=== PATIENT | male | born 1940 | race American Indian/Alaskan Native ===

== ENCOUNTER 2017-10-19 11:56 | Emergency (ER) | payer MEDICARE, OTHER ==
[2017-10-19 12:11] VITALS: PULSE 72; RESP 69; TEMP 97.9; O2SAT 96; BMI 25.7
--- NOTE | 2017-10-19 13:02 | ED PDOC ---
Arrival/HPI - General Chief Complaint: Dizziness/Lightheaded Time Seen by Provider: 10/19/17 12:46 Historian: Patient, Family (son) - History of Present Illness Narrative History of Present Illness (Text): 10/19/17 12:56 A 76 year old male, whose past medical history includes hypertension, presents to the emergency department complaining of 2 episodes of dizziness/room spinning sensation since yesterday. Patient reports dizziness today was worse than yesterday, and describes it as a room spinning sensation, lasting ~ 5 minutes. States not having experienced a similar episode in the past. Currently is not feeling dizzy at this time here in the ER. Patient notes also experiencing frontal forehead headache and also the lights bother him slightly. Patient denies experiencing any nausea, vomiting, shortness of breath, chest pain, palpitations, abdominal pain, slurred speech, numbness/tingling/weakness to extremities or face, or any other complaints at this time. Also, patient's son mentions patient has not recently taken his hypertension medications ( patient has 2 different hypertension meds; takes each once per day). Patient ran out of medications 1 month ago and has not visited PMD recently. family/patient denied facial numbness/tingling denied speech changes denied focal weakness PMD: Dr. Hemant Rg pt is right hand dominate Time/Duration: 24 hours Symptom Onset: Sudden Symptom Course: Worsening Severity Level: 4, Mild Activities at Onset: Rest Context: Home Past Medical History - Provider Review Nursing Documentation Reviewed: Yes - Travel History Have you recently traveled outside [place] w/in the past 3 mons?: No - Past History Past History: No Previous - Infectious Disease Hx of Infectious Diseases: None - Tetanus Immunization Tetanus Immunization: Unknown - Cardiac Hx Hypertension: Yes - Pulmonary Hx Respiratory Disorders: No - Neurological Hx Neurological Disorder: No - HEENT Hx HEENT Disorder: No - Renal Hx Renal Disorder: No - Endocrine/Metabolic Hx Endocrine Disorders: No - Hematological/Oncological Hx Blood Disorders: No - Integumentary Hx Dermatological Disorder: No - Musculoskeletal/Rheumatological Hx Musculoskeletal Disorders: No - Gastrointestinal Hx Gastrointestinal Disorders: No - Genitourinary/Gynecological Hx Genitourinary Disorders: No - Psychiatric Hx Psychophysiologic Disorder: No Hx Depression: No Hx Emotional Abuse: No Hx Physical Abuse: No Hx Substance Use: No - Past Surgical History Past Surgical History: No Previous - Suicidal Assessment Feels Threatened In Home Enviroment: No Family/Social History - Physician Review Nursing Documentation Reviewed: Yes Family/Social History: No Known Family HX Smoking Status: Never Smoked Hx Alcohol Use: Yes Frequency of alcohol use: Daily Hx Substance Use: No Hx Substance Use Treatment: No Allergies/Home Meds Allergies/Adverse Reactions: Allergies No Known Allergies Allergy (Verified 10/19/17 12:11) Home Medications: Home Meds Medication Instructions Recorded Confirmed Lisinopril 10 mg PO DAILY 10/12/12 10/19/17 Review of Systems - Physician Review All systems were reviewed & negative as marked: Yes - Review of Systems Constitutional: Normal Eyes: absent: Vision Changes ENT: Normal Respiratory: absent: SOB Cardiovascular: absent: Chest Pain, Palpitations Gastrointestinal: absent: Abdominal Pain, Nausea, Vomiting Genitourinary Male: Normal Musculoskeletal: Normal Skin: Normal Neurological: Headache, Dizziness (worsened today but is not experiencing symptoms at this time here in the ER). absent: Speech Changes, Other (no numbness/tingling/weakness to extremities) Endocrine: Normal Hemo/Lymphatic: Normal Psychiatric: Normal Physical Exam Vital Signs Reviewed: Yes Vital Signs Temp Pulse Resp BP Pulse Ox 10/19/17 12:04 97.9 F 72 69 H 192/107 H 96 Temperature: Afebrile Blood Pressure: Hypertensive Pulse: Regular Respiratory Rate: Normal Appearance: Positive for: Well-Appearing, Other (resting in bed, alert/awake, NAD, comfortable, cooperative, follows command with ease; oriented x 2 (not to date/time)) Pain Distress: None Mental Status: Positive for: Alert and Oriented X 3 - Systems Exam Head: Present: Atraumatic, Normocephalic Pupils: Present: PERRL, Other (no nystagmus, no photophobia, sclera anicteric, visual field intact b/l) Extroacular Muscles: Present: EOMI Conjunctiva: Present: Normal Ears: Present: Normal Mouth: Present: Dry, Other (fair dentitions, no drooling/stridor, no exudate/ lesions, uvula/tongue are midline) Pharnyx: Present: Normal Nose (External): Present: Atraumatic Nose (Internal): Present: Normal Inspection Neck: Present: Normal Range of Motion, Trachea Midline, Other (no nuchal rigidity, no meningeal signs, no midline tenderness). No: MIDLINE TENDERNESS Respiratory/Chest: Present: Clear to Auscultation, Good Air Exchange, Other ( CTA b/l, no w/r/r, no accessory muscle use noted). No: Respiratory Distress, Accessory Muscle Use Cardiovascular: Present: Regular Rate and Rhythm, Normal S1, S2. No: Murmurs Abdomen: Present: Normal Bowel Sounds, Other (well nourished male, no focal tenderness, no masses/rebound/guarding/rigidity, no velasquez's sign, no mcburney' s point tenderness). No: Tenderness, Distention, Peritoneal Signs Back: Present: Normal Inspection, Other (no cvat b/l, no midline tenderness, no gross deformities) Upper Extremity: Present: Normal Inspection, Normal ROM, NORMAL PULSES, Neurovascularly Intact, Other (strength 5/5 grossly intact in all limbs, neurovasc intact b/l). No: Cyanosis, Edema Lower Extremity: Present: Normal Inspection, Edema (faint edema noted b/l lower ext up to mid-tib/fib region, NO focal tenderness, no sole's sign b/l), NORMAL PULSES, Normal ROM, Neurovascularly Intact, Other (strength 5/5 grossly intact in all limbs) Neurological: Present: GCS=15, CN II-XII Intact, Speech Normal, Other (NIH stroke scale ~ 0) Skin: Present: Warm, Dry, Normal Color. No: Rashes Psychiatric: Present: Alert, Normal Insight, Normal Concentration Medical Decision Making ED Course and Treatment: 10/19/17 13:02 Impression: 76 year old male with dizziness and headache. Plan: -- EKG -- Head CT -- Labs -- Urinalysis -- Antivert -- Reglan -- Reassess and disposition Progress Notes: 10/19/2017 15:[address] IMPRESSION: No intracranial mass, hemorrhage, or evidence of acute infarct. Mild age- appropriate involutional change. Minimal chronic pansinusitis. Dictator: Gennaro Sweet MD 10/19/17 15:38 pt felt improved pt denied dizziness pt is able to ambulate without any difficulties vital signs stable son was able to obtain pt's BP meds from before, Amlodipine 10mg QD; Carvedol 6.25mg BID 10/19/17 15:47 pt remained comfortable no headaches pt denied dizziness/lightheadedness NIH stroke scale ~ 0 pt/son are made aware of pt's medical results pt is encouraged to take his medications pt will f/u as directed pt will be discharged home Re-evaluation Time: 15:00 Reassessment Condition: Improved - Lab Interpretations Lab Results: 10/19/17 13:50 10/19/17 13:50 Lab Results 10/19/17 13:50: Sodium 143, Potassium 5.1 H, Chloride 104, Carbon Dioxide 32, Anion Gap 13, BUN 12, Creatinine 0.9, Est GFR ( Amer) > 60, Est GFR (Non- Af Amer) > 60, Random Glucose 110, Calcium 9.5, Total Bilirubin 0.6, AST 34, ALT 34, Alkaline Phosphatase 74, Troponin I < 0.01, Total Protein 7.4, Albumin 4.2, Globulin 3.2, Albumin/Globulin Ratio 1.3 10/19/17 13:50: WBC 4.1 L, RBC 4.28, Hgb 13.6 L, Hct 41.1 L, MCV 96.0, MCH 31.8 , MCHC 33.1, RDW 13.5, Plt Count 136, MPV 11.5 H, Gran % 75.4 H, Lymph % (Auto) 13.8 L, [place] % (Auto) 9.3 H, Eos % (Auto) 1.5, Baso % (Auto) 0.0, Gran # 3.07, Lymph # (Auto) 0.6 L, [place] # (Auto) 0.4, Eos # (Auto) 0.1, Baso # (Auto) 0.00 I have reviewed the lab results: Yes Interpretation: All labs normal - RAD Interpretation Narrative RAD Interpretations (Text): 10/19/17 15:09 PROCEDURE: CT HEAD WITHOUT CONTRAST. HISTORY: sudden onset of dizziness COMPARISON: None available. TECHNIQUE: Axial computed tomography images were obtained through the head/brain without intravenous contrast. Radiation dose: Total exam DLP = 820.8 mGy-cm. This CT exam was performed using one or more of the following dose reduction techniques: Automated exposure control, adjustment of the mA and/or kV according to patient size, and/or use of iterative reconstruction technique. FINDINGS: HEMORRHAGE: No intracranial hemorrhage. BRAIN: No mass effect or edema. Mild diffuse age-appropriate cerebral atrophy. Mild periventricular white matter lucency consistent with chronic microvascular white matter ischemic change. No evidence of acute infarct. VENTRICLES: Unremarkable. No hydrocephalus. CALVARIUM: Unremarkable. PARANASAL SINUSES: Minimal chronic pansinusitis. MASTOID AIR CELLS: Unremarkable as visualized. No inflammatory changes. OTHER FINDINGS: None. IMPRESSION: No intracranial mass, hemorrhage or evidence of acute infarct. Mild age- appropriate involutional change. Minimal chronic pansinusitis. Radiology Orders: 10/19/17 13:02 HEAD W/O CONTRAST [CT] Stat Machine Operator Hop Worker: Radiologist - EKG Interpretation EKG Interpretation (Text): 10/19/17 15:09 NSR at 65 bpm, LAD, no ectopy, + U wave, no st changes, ABNL EKG; no old ekg to compare with Interpreted by ED Physician: Yes Type: 12 lead EKG Comparison: No previous EKG avail. - Medication Orders Current Medication Orders: Discontinued Medications Meclizine HCl (Antivert) 25 mg PO STAT STA Stop: 10/19/17 13:04 Last Admin: 10/19/17 13:49 Dose: 25 mg Metoclopramide HCl (Reglan) 10 mg IVP STAT STA Stop: 10/19/17 13:04 Last Admin: 10/19/17 13:49 Dose: 10 mg IVP Administration Document 10/19/17 13:49 HI (Rec: 10/19/17 13:49 [facility]-[id number]) Charges for Administration # of IVP Administrations 1 - Scribe Statement The provider has reviewed the documentation as recorded by the Daniela Witt Provider Scribe Attestation: All medical record entries made by the Johnnieibisha were at my direction and personally dictated by me. I have reviewed the chart and agree that the record accurately reflects my personal performance of the history, physical exam, medical decision making, and the department course for this patient. I have also personally directed, reviewed, and agree with the discharge instructions and disposition. Disposition/Present on Arrival - Present on Arrival Any Indicators Present on Arrival: No History of DVT/PE: No History of Uncontrolled Diabetes: No Urinary Catheter: No History of Decub. Ulcer: No History Surgical Site Infection Following: None - Disposition Have Diagnosis and Disposition been Completed?: Yes Diagnosis: Vertigo, Non compliance w medication regimen, Elevated blood pressure reading Disposition: HOME/ ROUTINE Disposition Time: 15:41 Patient Plan: Discharge Condition: STABLE Discharge Instructions (ExitCare): Hypertension (ED), Medicines for High Blood Pressure, Vertigo (a Type of Dizziness) Print Language: MALAGASY Additional Instructions: Make sure to see your doctor in 1-2 days YOU must take your medications as prescribed DRINK PLENTY OF FLUIDS take your medications as prescribed RETURN TO ED IF worse pain, cant breath, altered mental status, slurr speech, cant walk, cant see, facial numbness/tingling, persistent vomiting, high fever > 101-102 for hours, altered behavior, unable to urinate, heavy/persistent bleeding, passing out, chest pain, or other medical emergencies Prescriptions: amLODIPine [Norvasc] 10 mg PO DAILY #30 tab Carvedilol [Coreg] 6.25 mg PO BID #30 tab Meclizine [Meclizine*] 25 mg PO TID PRN #30 tab PRN Reason: Dizziness Metoclopramide HCl [Reglan] 10 mg PO TID PRN #30 tablet PRN Reason: Nausea/Vomiting Referrals: Hemant Rg MD [Primary Care Provider] - Follow up with primary Forms: [employer] (Kyrgyz)
[2017-10-19 13:54] LABS: EOS # 0.1 (0.0-0.7); EOS % 1.5 % (1.5-5.0); GRAN # 3.07 (1.4-6.5); GRAN % 75.4 % (50.0-68.0); HEMOGLOBIN 13.6 g/dL (14.0-18.0); LYMPH # 0.6 (1.2-3.4); LYMPH % 13.8 % (22.0-35.0); MEAN CORPUSCULAR HEMOGLOBIN 31.8 pg (25.0-35.0); MEAN CORPUSCULAR HGB CONC 33.1 g/dl (31.0-37.0); MEAN PLATELET VOLUME 11.5 fl (7.0-11.0); MONO # 0.4 (0.1-0.6); MONO % 9.3 % (1.0-6.0); RBC 4.28 10^6/uL (3.5-6.1); RED CELL DISTRIBUTION WIDTH 13.5 % (11.5-14.5); WHITE BLOOD COUNT 4.1 10^3/ul (4.5-11.0)
[2017-10-19 14:04] LABS: ALB/GLOB RATIO 1.3 (1.1-1.8); ALBUMIN 4.2 g/dL (3.0-4.8); ALT/SGPT 34 U/L (7-56); AST/SGOT 34 U/L (17-59); BLOOD UREA NITROGEN 12 mg/dL (7-21); CALCIUM 9.5 mg/dL (8.4-10.5); GFR AFRICAN-AMERICAN > 60; GFR NON-AFRICAN AMERICAN > 60
[2017-10-19 14:15] LABS: TROPONIN I < 0.01 ng/mL
--- NOTE | 2017-10-19 15:05 | CT ---
PROCEDURE: CT HEAD WITHOUT CONTRAST. HISTORY: sudden onset of dizziness COMPARISON: None available. TECHNIQUE: Axial computed tomography images were obtained through the head/brain without intravenous contrast. Radiation dose: Total exam DLP = 820.8 mGy-cm. This CT exam was performed using one or more of the following dose reduction techniques: Automated exposure control, adjustment of the mA and/or kV according to patient size, and/or use of iterative reconstruction technique. FINDINGS: HEMORRHAGE: No intracranial hemorrhage. BRAIN: No mass effect or edema. Mild diffuse age-appropriate cerebral atrophy. Mild periventricular white matter lucency consistent with chronic microvascular white matter ischemic change. No evidence of acute infarct. VENTRICLES: Unremarkable. No hydrocephalus. CALVARIUM: Unremarkable. PARANASAL SINUSES: Minimal chronic pansinusitis. MASTOID AIR CELLS: Unremarkable as visualized. No inflammatory changes. OTHER FINDINGS: None. IMPRESSION: No intracranial mass, hemorrhage or evidence of acute infarct. Mild age-appropriate involutional change. Minimal chronic pansinusitis.
[2017-10-19 15:40] VITALS: BP 120/97
--- NOTE | 2017-10-20 08:49 | CARD ---
APPROVED REPORT EKG Measurement Heart [id number] <Conclusion> Normal sinus rhythm Possible Left atrial enlargement Left ventricular hypertrophy by voltage
== END 2017-10-19 16:08 | disposition home or self-care (01) ==
LOC: ED 11:56
DX: R42 Dizziness and giddiness (principal); I10 Essential (primary) hypertension; Z91.14 Patient's other noncompliance with medication regimen
CPT/HCPCS: 70450; 80053; 84484; 85025; 93005; 96374; 99285; J2765